=== PATIENT | male | born 1935 | race Caucasian/White ===

== ENCOUNTER → 2018-05-11 | Outpatient (CLI) | payer MEDICARE ==
[~2018-05-11] MED LIST: ASPIR 8181 MG PO; CLEOCIN HCL300 MG PO; COREG CR20 MG PO; COUMADIN 5 MG TA5 M1 PO; DYRENIUM100 MG PO; LEVOTHROID88 MCG PO; NORCO 5-325 TA1 EACH PO; PACERONE 200 M200 M1 PO; PLAVIX 75 MG TA75 M1 PO; PRINIVIL20 MG PO; SORINE 80 MG TA80 M1 PO
[2018-05-11 14:35] LABS: ALBUMIN 3.2 g/dL (3.4-5.0); DIRECT BILIRUBIN 0.1 mg/dL (<0.1-0.3); TOTAL BILIRUBIN 0.7 mg/dL (<0.1-1.0); TOTAL PROTEIN 6.7 g/dL (6.4-8.2)
== END ==
LOC: M.LAB 13:48
DX: Z51.81 Encounter for therapeutic drug level monitoring (principal); Z79.899 Other long term (current) drug therapy

== ENCOUNTER → 2018-06-24 | Outpatient (CLI) | payer MEDICARE | LOC: M.RAD 11:16 | DX: S22.080A Wedge compression fracture of T11-T12 vertebra, initial encounter for closed fracture (principal); M51.35 Other intervertebral disc degeneration, thoracolumbar region; M43.16 Spondylolisthesis, lumbar region; M41.84 Other forms of scoliosis, thoracic region; I70.0 Atherosclerosis of aorta; X58.XXXA Exposure to other specified factors, initial encounter; Y93.89 Activity, other specified; Y92.89 Other specified places as the place of occurrence of the external cause; Y99.8 Other external cause status ==

== ENCOUNTER 2019-09-12 05:09 | Emergency (ER) | payer MEDICARE ==
[~2019-09-12] VITALS: Ht 185.4 cm; Wt 87.1 kg
[2019-09-12] MEDS ORDERED: MULTIVITAMINS1 EAC7 PO (05:23)
[2019-09-12 05:38] LABS: ABSOLUTE BASOPHILS 0.1 thou/uL (0.0-0.2); ABSOLUTE EOSINOPHILS 0.1 thou/uL (0.0-0.7); ABSOLUTE LYMPHOCYTES 0.8 thou/uL (0.8-5.3); ABSOLUTE MONOCYTES 0.5 thou/uL (0.0-1.2); EOSINOPHILS 0.9 %; HEMATOCRIT 38.9 % (42.0-52.0); HEMOGLOBIN 13.2 gm/dL (14.0-18.0); LYMPHOCYTES 12.9 %; MCH 30.2 pg (26.0-34.0); MCV 88.9 fL (80.0-100.0); MONOCYTES 8.2 %; MPV 7.2 fl. (7.2-11.1); NUCLEATED RBCS 0 /100WBC; PLATELET COUNT* 142 thou/uL (150-400); RBC 4.37 mil/uL (4.50-6.00); RDW-CV 15.1 % (10.5-14.5); WBC 6.5 thou/uL (4.0-11.0)
[2019-09-12 05:45] LABS: CALCIUM 8.6 mg/dL (8.5-10.1); CREATININE 1.1 mg/dL (0.6-1.3); POTASSIUM 3.8 mmol/L (3.5-5.1)
[2019-09-12 05:47] LABS: INR 3.6; PROTIME 35.2 Seconds (9.20-11.50)
[2019-09-12 06:55] VITALS: BP 134/84
--- NOTE | 2019-09-13 10:40 | EKG ---
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: : 1935 Requested By: Karo Moore Order Number: [id number] MD: Sinan Sesay Measurements Intervals [place] Rate: 70 P: 67 SC: 28 QRS: -91 QRSD: 335 T: 80 QT: 655 QTc: 708 Interpretive Statements Ventricular-paced complexes No further rhythm analysis attempted due to paced rhythm Compared to ECG 08/25/2015 14:26:55 no change Electronically Signed On 09-13-2019 10:40:41 CDT by Sinan Sesay [email or web address] <ELECTRONICALLY SIGNED> By: Sinan Sesay MD, FACC 09/13/19 1040 0528 0528 Sinan Sesay MD, [facility] /EPI
== END 2019-09-12 06:56 | disposition home or self-care (01) ==
LOC: M.ERS 05:09
PROVIDERS: Emergency Medicine
DX: S50.02XA Contusion of left elbow, initial encounter (principal); S50.01XA Contusion of right elbow, initial encounter; Z95.0 Presence of cardiac pacemaker; Z85.038 Personal history of other malignant neoplasm of large intestine; Z91.041 Radiographic dye allergy status; Z88.0 Allergy status to penicillin; W18.39XA Other fall on same level, initial encounter; Y93.89 Activity, other specified; Y92.89 Other specified places as the place of occurrence of the external cause; Y99.8 Other external cause status

== ENCOUNTER 2019-09-16 20:19 | Inpatient (IN) | payer MEDICARE ==
[~2019-09-16] VITALS: Ht 185.4 cm; Wt 89.8 kg
[~2019-09-16 20:19] MED LIST changes: +MULTIVITAMINS1 EAC7 PO
[2019-09-16 20:24] VITALS: BP 123/79
[2019-09-16 20:51] LABS: ABSOLUTE EOSINOPHILS 0.1 thou/uL (0.0-0.7); ABSOLUTE LYMPHOCYTES 1.2 thou/uL (0.8-5.3); ABSOLUTE MONOCYTES 0.6 thou/uL (0.0-1.2); ABSOLUTE NEUTROPHILS 4.3 thou/uL (1.6-8.1); BASOPHILS 0.7 %; EOSINOPHILS 1.4 %; HEMATOCRIT 39.6 % (42.0-52.0); HEMOGLOBIN 13.6 gm/dL (14.0-18.0); LYMPHOCYTES 19.7 %; MCH 30.6 pg (26.0-34.0); MCHC 34.3 g/dL (28.0-37.0); MCV 89.5 fL (80.0-100.0); MONOCYTES 10.2 %; MPV 7.6 fl. (7.2-11.1); NUCLEATED RBCS 0 /100WBC; PLATELET COUNT* 145 thou/uL (150-400); RBC 4.43 mil/uL (4.50-6.00); WBC 6.3 thou/uL (4.0-11.0)
[2019-09-16 20:55] LABS: CALCIUM 8.3 mg/dL (8.5-10.1); POTASSIUM 3.6 mmol/L (3.5-5.1)
[2019-09-16 21:01] LABS: PROTIME 20.2 Seconds (9.20-11.50)
[2019-09-16 21:10] LABS: ALBUMIN 3.6 g/dL (3.4-5.0); MAGNESIUM 2.3 mg/dL (1.8-2.4)
[2019-09-16 22:53] LABS: URINE BILIRUBIN NEGATIVE (Negative); URINE BLOOD NEGATIVE (Negative); URINE CLARITY CLEAR; URINE COLOR DARK YELLOW; URINE GLUCOSE-RANDOM NEGATIVE (Negative); URINE KETONES NEGATIVE (Negative); URINE LEUKOCYTES-REFLEX TRACE (Negative); URINE NITRITE-REFLEX NEGATIVE (Negative); URINE PROTEIN NEGATIVE (Negative); URINE UROBILINOGEN 0.2 E.U./dl (0.2-1.0)
[2019-09-16 23:03] LABS: BACTERIA-REFLEX >30 Many /HPF (None Seen); CASTS None Seen /LPF (None Seen); CRYSTALS None Seen /LPF (None Seen); MUCUS 4-6 Moderate strn/LPF (None Seen); SQUAMOUS 0-3 Few /LPF (0-3); URINE RBC 3-10 Few /HPF (0-2); URINE WBC-REFLEX 6-15 Few /HPF (0-5); WBC CLUMPS Few (None Seen)
[2019-09-16] MEDS ORDERED: MACROBID 100 M100 M2 PO (23:12)
[2019-09-17] VITALS (8 sets, daily range): BP systolic 107–140; BP diastolic 69–88
--- NOTE | 2019-09-17 04:50 | NUR ---
PT RECEIVED FROM ED IN ROOM 204. DENIES PAIN AND SOB. ALERT AND ORIENTED X4. NO DIARRHOEA NOTED. CALL LIGHT WITHIN REACH AND BED IN LOW POSITION. HOURLY ROUNDING DONE FOR PT SAFETY.
[2019-09-17 09:05] LABS: CREATININE 0.9 mg/dL (0.6-1.3); MAGNESIUM 2.2 mg/dL (1.8-2.4); POTASSIUM 3.9 mmol/L (3.5-5.1)
[2019-09-17 09:07] LABS: INR 2.1; PROTIME 21.2 Seconds (9.20-11.50)
--- NOTE | 2019-09-17 09:22 | EKG ---
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 : 1935 Requested By: Karo Moore Order Number: [id number] MD: Sinan Sesay Measurements Intervals [place] Rate: 70 P: ID: 73 QRS: 255 QRSD: 303 T: 77 QT: 572 QTc: 618 Interpretive Statements A-V dual-paced rhythm with some inhibition No further analysis attempted due to paced rhythm Baseline wander in lead(s) V5 Compared to ECG 09/12/2019 05:28:22 No significant changes Electronically Signed On 09-17-2019 9:22:46 CDT by Sinan Sesay [email or web address] <ELECTRONICALLY SIGNED> By: Sinan Sesay MD, FACC 09/17/19 09 2030 29 Sinan Sesay MD, FAC /EPI
--- NOTE | 2019-09-17 11:18 | NUR ---
Pt is A&O. Resides at home with his . Independent. Pt has a walker and cane at home, but states that he does not currently use either. No home o2. No hx of HH or SNF. Pt is current with cardiac rehab in [place] and plans to resume at dc. PT eval pending. Goal is home at dc. Following.
--- NOTE | 2019-09-17 12:00 | NUR ---
ASSUMED CARE OF PT AT 0730. PT RESTING IN BED. AT BEDSIDE AND UPDATED ON CURRENT PLAN OF CARE. A&0X4, DENIES ANY PAIN OR SHORTNESS OF BREATH AT THIS TIME. TRACING APACED ON THE PROTECTIVE SIGNAL REPAIRER HELPER. ON RA SAT UPPER 90'S. PT UP WITH MOD ASSIST TO BATHROOM-WEAKNESS NOTED. IVF. PT TOLERATED CLEAR LIQUID DIET THIS AM WELL-ADVANCED TO REGULAR FOR LUNCH. PT GOAL FOR TODAY IS WORK WITH PT AND OT, TOLERATE ADVANCED DIET AND OBTAIN ECHO. AM ASSESSMENT CHARTED. MEDICATIONS PER APR. PT REPOSITIONS SELF WITH REMINDERS. HOURLY ROUNDING OBSERVED. BED IN LOW POSITION. BED/CHAIR ALARM IN PLACE. FALL PRECAUTIONS IN PLACE. CALL LIGHT WITHIN REACH. WILL CONTINUE PLAN OF CARE.
--- NOTE | 2019-09-17 14:11 | 2DMMODE ---
[place] [address] 2 D/M-MODE ECHOCARDIOGRAM Name: ZABRINA YUN Room: [address] IN [facility]#: [id number] Admission: 09/17/19 Attend Phys: Galileo Jack Discharge: Date of : 37 Date of Service: 09/17/19 1410 Report #: [id number] THIS REPORT FOR: cc: Marcela Rajan Dorothy L. RNP Blick, David R. MD [facility] ~ APPROVED REPORT Study performed: 09/17/2019 11:12:19 EXAM: Comprehensive 2D, Doppler, and color-flow Echocardiogram Patient Location: In-Patient Room #: [facility] Status: routine BSA: 2.15 HR: 70 bpm BP: 112/69 mmHg Rhythm: NSR Other Information Study Quality: Excellent Indications CVA/TIA Echo Enhancing Agent Indication: Rule out Shunt Agent(s) / Amount(s) Used: Agitated Saline 10 cc 2D Dimensions IVSd: 16.58 (7-11mm) LVOT Diam: 27.89 (18-24mm) LVDd: 49.86 mm PWd: 10.27 (7-11mm) Ascending Ao: 41.01 (22-36mm) LVDs: 43.98 (25-40mm) Aortic Root: 36.20 mm Volumes Left Atrial Volume (Systole) LA ESV Index: 107.50 mL/m2 Aortic Valve AoV Peak Cesario.: 2.13 m/s AO Peak Gr.: 18.09 mmHg LVOT Max P.51 mmHg AO Mean Gr.: 10.61 mmHg LVOT Mean P[place]66 [place] [address] 2 D/M-MODE ECHOCARDIOGRAM Name: ZABRINA YUN Room: [address] IN M.R.#: [id number] Admission: 09/17/19 Attend Phys: Galileo Jack Discharge: Date of : 37 Date of Service: 09/17/19 1410 Report #: [id number] LVOT Max V: 0.61 m/s AO V2 VTI: 40.12 cm LVOT Mean V: 0.37 m/s STANFORD (VTI): 1.81 cm2 LVOT V1 VTI: 11.88 cm Mitral Valve E/A Ratio: 1.80 MV Decel. Time: 149.91 ms MV E Max Cesario.: 0.63 m/s MV PHT: 43.48 ms MVA (PHT): 5.06 cm2 TDI E/Lateral E': 6.30 E/Medial E': 9.00 Medial E' Cesario.: 0.07 m/s Lateral E' Cesario.: 0.10 m/s Pulmonary Valve PV Peak Cesario.: 0.63 m/s PV Peak Gr.: 1.57 mmHg Tricuspid Valve RAP Estimate: 5.00 mmHg TR Peak Gr.: 26.27 mmHg RVSP: 31.00 mmHg PA Pressure: 31.00 mmHg Left Ventricle The left ventricle is normal size. There is global hypokinesis of the left ventricle. Moderate septal hypertrophy is present. Left ventricular systolic function is severely decreased. LVEF is 20-25%. Grade IV - fixed restrictive diastolic dysfunction. Right Ventricle The right ventricle is normal size. The right ventricular systolic function is normal. Pacemaker lead is present in the right ventricle. Atria Left atrium is severely dilated. The interatrial septum is intact with no evidence for an atrial septal defect. The right atrium size is normal. Aortic Valve Aortic valve is calcified. Mild aortic regurgitation. Moderate aortic stenosis. Mitral Valve The mitral valve is normal in structure. Trace mitral regurgitation. No evidence [place] [address] 2 D/M-MODE ECHOCARDIOGRAM Name: JAMAJULIO CESARKAMALJIT DE DIOS Room: [address] IN M.R.#: [id number] Admission: 09/17/19 Attend Phys: Galileo Jack Discharge: Date of : 37 Date of Service: 09/17/19 1410 Report #: [id number] Tricuspid Valve The tricuspid valve is normal in structure. Mild tricuspid regurgitation. estimated pa pressure 35 mm Hg Pulmonic Valve The pulmonary valve is normal in structure. Trace pulmonic regurgitation. Great Vessels The aortic root is normal in size. The ascending aorta is mildly dilated. IVC is normal in size and collapses >50% with inspiration. Pericardium There is no pericardial effusion. <Conclusion> LVEF is 20-25%. Left atrium is severely dilated. Mild aortic regurgitation. Moderate aortic stenosis. The interatrial septum is intact with no evidence for an atrial septal defect. <ELECTRONICALLY SIGNED> By: Sinan Sesay MD, FACC 09/17/19 1410 141 141 Sinan Sesay MD, FACC /INF
--- NOTE | 2019-09-17 18:15 | NUR ---
NO ACUTE CHANGES THROUGHOUT SHIFT. REFER TO CHARTING. PT PROGRESSING TOWARDS GOALS. PT TOLERATING REGULAR DIET WITHOUT DIFFICULTIES. PT WORKED WITH PT AND OT TODAY-TOLERATED FAIR. WEAKNESS NOTED. PT UP TO CHAIR FOR MEALS-TOLERATED WELL. ECHO COMPLETED-REFER TO RESULTS. IVF. REMAINED AT BEDSIDE THROUGHOUT AFTERNOON. CONTINUES TO TRACE A PACED ON THE INDEPENDENT JEWELER. ON RA SAT UPPER 90'S. PT DENIES ANY PAIN OR SHORTNESS OF BREATH THROUGHOUT AFTERNOON. MEDS PER MAR. PT REPOSITIONS SELF WITH REMINDERS. HOURLY ROUNDING OBSERVED. BED IN LOW POSITION. BED/CHAIR ALARM IN PLACE. CALL LIGHT WITHIN REACH. FALL PRECAUTIONS IN PLACE. WILL CONTINUE PLAN OF CARE.
[2019-09-18] VITALS: BP 121/74
[2019-09-18 04:00] VITALS: BP 135/85
[2019-09-18 04:51] LABS: INR 2.2; PROTIME 22.1 Seconds (9.20-11.50)
--- NOTE | 2019-09-18 05:04 | NUR ---
PT SLEPT ON AND OFF OVERNIGHT,HAS BEEN CALM AND COOPERATIVE. AO, FORGETFUL OVERNIGHT. ABLE TO USE CALL LITE AND MAKE NEEDS KNOWN. TELE APACED OVERNIGHT. RFA IV SL. PT USING URINAL TO VOID WTH ASSIST, UP WITH GB AND WALKER. ROOM AIR.
[2019-09-18 05:56] LABS: CALCIUM 8.1 mg/dL (8.5-10.1); CREATININE 0.9 mg/dL (0.6-1.3); MAGNESIUM 2.1 mg/dL (1.8-2.4); POTASSIUM 3.8 mmol/L (3.5-5.1)
[2019-09-18 08:00] VITALS: BP 129/76
--- NOTE | 2019-09-18 11:47 | NUR ---
RECIEVED REPORT AROUND 0730. ASSUMED CARE. VS AND ASSESSMENT CHARTED. PT HAD NO COMPLAINTS OF PAIN. ATTACHED TO HEART MONITOR. MEDICATION PER MAR. AT BEDSIDE THIS AM. CARDIOLOGY CONSULTED BY DR. GAYTAN. CALL LIGHT WITH IN REACH. WILL CONTINUE TO MONITOR.
[2019-09-18 12:03] VITALS: BP 136/83
[2019-09-18 16:07] VITALS: BP 113/63
--- NOTE | 2019-09-18 18:50 | NUR ---
NO NEW CHANGES FROM MORNING ASSESSMENT. MEDICATION PER MAR. NO REPORTS OF PAIN. VISITED AT BEDSIDE DURING SHIFT. PATIENT LYING IN BED. HEART MONITOR INTACT. PHYSICAL THERAPY WORKED WITH PATIENT THIS SHIFT. PATIENT DID GOOD. CALL LIGHT WITHIN REACH. WILL CONTINUE TO MONITOR.
[2019-09-18 20:00] VITALS: BP 118/71
[2019-09-19] VITALS: BP 123/73
[2019-09-19 03:55] VITALS: BP 120/70
[2019-09-19 05:05] LABS: INR 2.3; PROTIME 22.7 Seconds (9.20-11.50)
--- NOTE | 2019-09-19 05:16 | NUR ---
ASSUMED CARE OF PT AFTER REPORT AT 1930. PT A&OX4. VSS. PHYSICAL ASSESSMENT COMPLETED AND CHARTED. PT ON RA. PT TRACING APACED/BBB ON TELE. PT UPSTANDBY TO BSC. PT DENIES ANY PAIN. FALL PRECAUTIONS IN PLACE. CALL LIGHT WITHIN REACH.
[2019-09-19 08:00] VITALS: BP 131/95
[2019-09-19] MEDS ORDERED: LISINOPRIL5 MG PO (08:38)
[2019-09-19] MEDS ORDERED: VITAMIN B-121000 MC2 SUBLING (08:38)
[2019-09-19] MEDS ORDERED: SYNTHROID100 MC1 PO (08:38)
[2019-09-19] MEDS ORDERED: LASIX 20 MG TAB20 MG PO (08:43)
--- NOTE | 2019-09-19 11:21 | NUR ---
RECIEVED REPORT AROUND 07. ASSUMED CARE. VS AND ASSESSMENT CHARTED. NO REPORTS OF PAIN. HEART MONITOR INTACT. MEDICATION PER MAR. AT BEDSIDE. CALL LIGHT WITHIN REACH. WILL CONTINUE TO MONITOR.
[2019-09-19 12:03] VITALS: BP 131/95
--- NOTE | 2019-09-19 12:45 | NUR ---
RECIEVED DISCHARGE ORDERS FROM DR. GAYTAN. CARDIOLOLY AGREES WITH DISCHARGE. DISCHARGE PACKET GONE OVER, WITH PATIENT AND . ALL QUESTIONS ANSWERED. COMMUNICATED UNDERSTANDING. IV AND HEART MONITOR TAKEN OFF. ALL BELONGINGS LEFT UNIT WITH PATIENT AND AT 1245.
--- NOTE | 2019-09-21 14:44 | CON ---
[address] [address] CONSULTATION Name: ZABRINA YUN Room: [address] IN M.R.#: [id number] Admission: 09/17/19 Attend Phys: Antoinette Richard Discharge: 09/19/19 Date of : 37 Report #: [id number] THIS REPORT FOR: //name// cc: Marcela Rajan Dorothy L. RNP ~ THIS REPORT FOR: //name// CC: Marcela Jack DATE OF SERVICE: 09/18/2019 CARDIOLOGY CONSULTATION HISTORY OF PRESENT ILLNESS: The patient is an 84-year-old white male who I was asked to see in the hospital today after he complained of being lightheaded. The patient has an extensive and complicated past medical history. He had a coronary stent placed in the circumflex artery in 2003 at [facility] [place] the [place] In 2003, he had a syncopal spell and had a pacemaker inserted at [facility]. However, he had another syncopal spell and the pacemaker was upgraded to a defibrillator at [facility] about 6 months later. He has had a generator change since that time. He continues to be seen by his chief airport guide at [facility]. He does have a home monitoring device for his defibrillator. He has had no recent discharges. He notes that at one time, his ejection fraction only 30%; however, his last echocardiogram apparently showed an ejection fraction 48%. He stays very active at this time. He does fall occasionally. He notes that 5 days ago, he got up in the middle of the night and fell on his way to the bathroom. He apparently was brought here to [place] and evaluated in the Emergency Room and sent home. He then notes that 3 days ago, he lives with his at a restaurant. He felt lightheaded. He was brought here to [place] and felt to have urinary tract infection. Because of his history of coronary artery disease, I was asked to see the patient in consultation. He denies recent chest pain, shortness of breath, edema, palpitations, recent syncope, discharges of defibrillator. PAST MEDICAL HISTORY: He has had a cholecystectomy, hypertension, hyperlipidemia. He has a history of atrial fibrillation, apparently has been cardioverted in the past. CURRENT MEDICATIONS: Consist of the following: Amiodarone 200 mg a day, aspirin 81 mg a day, carvedilol 12.5 mg at bedtime, Synthroid, lisinopril 10 mg a day, warfarin 5 mg a day. ALLERGIES: HE HAS A PREVIOUS INTOLERANCE TO IV CONTRAST [place] [address] CONSULTATION Name: JAMAJULIO CESARKAMALJIT DE DIOS Room: [address] IN M.R.#: [id number] Admission: 09/17/19 Attend Phys: Antoinette Richard Discharge: 09/19/19 Date of : 37 Report #: [id number] FAMILY HISTORY: His father had heart disease. SOCIAL HISTORY: He is . He and his live in a farm outside [place], [place]. He quit smoking years ago, rarely drinks alcohol. REVIEW OF SYSTEMS: No history of stroke, asthma, liver disease, kidney disease. He has a history of colon cancer, had chemotherapy. No psychiatric illness. No chronic skin condition. PHYSICAL EXAMINATION: GENERAL: Revealed an elderly, frail-appearing male, lying in bed. He appeared in no distress. VITAL SIGNS: Blood pressure 120/70, pulse 70, he is afebrile. HEENT: He was anicteric. Conjunctivae pink. Mucous membranes moist. NECK: Veins nondistended. No carotid bruits. CHEST: Clear to auscultation. CARDIOVASCULAR: Regular rate and rhythm, grade 2 systolic ejection murmur. ABDOMEN: Soft. EXTREMITIES: Had no edema. SKIN: Warm and dry. NEUROLOGIC: Nonfocal. RADIOLOGICAL DATA: His ECG showed a ventricular paced rhythm. On the monitor since the patient has been here for the past couple of days, he remains AV sequentially paced. There were occasional episodes of failure to capture. His echocardiogram done yesterday showed ejection fraction only 25%, left atrial enlargement. There was evidence of moderate aortic stenosis. The peak gradient across the aortic valve was noted to be 18 mmHg. He had a CT scan of the head performed last week when he came after a fall that showed no acute abnormality, only atrophy. He had a CT scan of the chest after his fall that showed no acute abnormality, cardiomegaly. His chest x-ray, showed cardiomegaly, mild vascular congestion, some atelectasis. LABORATORY WORK: Sodium 141, creatinine 0.9. His BNP 6352. TSH 7.1. His INR is 2.2. White blood cell count 6.3, hemoglobin of 13.6. IMPRESSION AND RECOMMENDATIONS: 1. Sick sinus syndrome. The patient has been 100% paced. 2. Previous implantation of defibrillator. Pacemaker appears to have failed to capture. Most likely will have to have a lead replaced. 3. Previous implantation of defibrillator. No recent discharges. 4. Cardiomyopathy. The patient is on an EARNESTINE inhibitor and beta rhiannon. I would recommend adding Aldactone. 5. History of atrial fibrillation. The patient is on amiodarone and warfarin, I would hold warfarin at this time for possible need for pacemaker lead replacement. [facility] [address] [facility] [place] [address] CONSULTATION Name: ZABRINA YUN Room: [address] IN [facility].#: [id number] Admission: 09/17/19 Attend Phys: Antoinette Richard Discharge: 09/19/19 Date of : 37 Report #: [id number] 6. History of colon cancer. 7. Recent fall. 8. Dizzy spell. Suspect secondary to pacemaker failure to capture. 9. Coronary artery disease. No recent angina. Since the patient on warfarin, I would not recommend aspirin at this time. <ELECTRONICALLY SIGNED> By: Sinan Sesay MD, FACC 09/21/19 1444 0938 1000Daviantoinette Sesay MD, FACC /nt
== END 2019-09-19 12:45 | disposition home or self-care (01) | DRG 308 ==
LOC: M.ERS 20:19 → M.2W 23:32 → M.TBA-ER 23:32 → M.2W 09-17 01:04
PROVIDERS: Emergency Medicine; Internal Medicine; ADMIT Internal Medicine; ATTEND Internal Medicine
DX: T82.190A Other mechanical complication of cardiac electrode, initial encounter (principal); I50.23 Acute on chronic systolic (congestive) heart failure; D68.59 Other primary thrombophilia; I42.9 Cardiomyopathy, unspecified; I95.1 Orthostatic hypotension; I48.91 Unspecified atrial fibrillation; I11.0 Hypertensive heart disease with heart failure; E03.9 Hypothyroidism, unspecified; I49.5 Sick sinus syndrome; I35.0 Nonrheumatic aortic (valve) stenosis; E86.9 Volume depletion, unspecified; E53.8 Deficiency of other specified B group vitamins; E78.5 Hyperlipidemia, unspecified; Z90.49 Acquired absence of other specified parts of digestive tract; Y83.8 Other surgical procedures as the cause of abnormal reaction of the patient, or of later complication, without mention of misadventure at the time of the procedure; Z20.828 Contact with and (suspected) exposure to other viral communicable diseases; Y92.89 Other specified places as the place of occurrence of the external cause

== ENCOUNTER 2019-12-19 17:40 | Emergency (ER) | payer MEDICARE ==
[~2019-12-19] VITALS: Ht 182.9 cm; Wt 83.9 kg
[~2019-12-19 17:40] MED LIST changes: +LASIX 20 MG TAB20 MG PO; +LISINOPRIL5 MG PO; +MACROBID 100 M100 M2 PO; +SYNTHROID100 MC1 PO; +VITAMIN B-121000 MC2 SUBLING
[2019-12-19 18:45] LABS: ABSOLUTE BASOPHILS 0.1 thou/uL (0.0-0.2); ABSOLUTE EOSINOPHILS 0.2 thou/uL (0.0-0.7); ABSOLUTE LYMPHOCYTES 1.1 thou/uL (0.8-5.3); ABSOLUTE MONOCYTES 0.7 thou/uL (0.0-1.2); ABSOLUTE NEUTROPHILS 3.6 thou/uL (1.6-8.1); BASOPHILS 1.3 %; EOSINOPHILS 2.7 %; HEMATOCRIT 37.8 % (42.0-52.0); HEMOGLOBIN 12.9 gm/dL (14.0-18.0); LYMPHOCYTES 19.5 %; MCH 30.2 pg (26.0-34.0); MCHC 34.1 g/dL (28.0-37.0); MCV 88.5 fL (80.0-100.0); MONOCYTES 12.4 %; NUCLEATED RBCS 0 /100WBC; PLATELET COUNT* 155 thou/uL (150-400); POLYS 64.1 %; RBC 4.27 mil/uL (4.50-6.00); RDW-CV 15.5 % (10.5-14.5); WBC 5.7 thou/uL (4.0-11.0)
[2019-12-19 18:58] LABS: CALCIUM 8.7 mg/dL (8.5-10.1); CREATININE 0.9 mg/dL (0.6-1.3); POTASSIUM 3.9 mmol/L (3.5-5.1)
[2019-12-19 19:03] LABS: ALBUMIN 3.1 g/dL (3.4-5.0); TOTAL BILIRUBIN 0.7 mg/dL (<0.1-1.0); TOTAL PROTEIN 6.9 g/dL (6.4-8.2)
[2019-12-19 19:04] LABS: APTT 37.3 Seconds (25.0-31.3); INR 2.4
[2019-12-19 20:12] VITALS: BP 125/70
== END 2019-12-19 20:13 | disposition home or self-care (01) ==
LOC: M.ERS 17:40
PROVIDERS: Family Medicine
DX: S51.012A Laceration without foreign body of left elbow, initial encounter (principal); S70.02XA Contusion of left hip, initial encounter; S09.8XXA Other specified injuries of head, initial encounter; I48.91 Unspecified atrial fibrillation; E03.9 Hypothyroidism, unspecified; I50.32 Chronic diastolic (congestive) heart failure; Z88.0 Allergy status to penicillin; Z91.041 Radiographic dye allergy status; Z85.038 Personal history of other malignant neoplasm of large intestine; W01.0XXA Fall on same level from slipping, tripping and stumbling without subsequent striking against object, initial encounter; Y93.89 Activity, other specified; Y92.89 Other specified places as the place of occurrence of the external cause; Y99.8 Other external cause status

== ENCOUNTER 2020-09-08 10:56 | Emergency (ER) | payer OTHER ==
[~2020-09-08] VITALS: Ht 182.9 cm; Wt 86.2 kg
[2020-09-08] MEDS ORDERED: JANTOVEN2.5 MG PO (11:35)
[2020-09-08 13:27] LABS: URINE BILIRUBIN NEGATIVE (Negative); URINE BLOOD NEGATIVE (Negative); URINE CLARITY CLEAR; URINE COLOR YELLOW; URINE GLUCOSE-RANDOM NEGATIVE (Negative); URINE KETONES NEGATIVE (Negative); URINE LEUKOCYTES-REFLEX NEGATIVE (Negative); URINE NITRITE-REFLEX NEGATIVE (Negative); URINE PROTEIN NEGATIVE (Negative); URINE UROBILINOGEN 0.2 E.U./dl (0.2-1.0)
[2020-09-08 13:36] LABS: HEMATOCRIT 35.2 % (42.0-52.0); MCH 30.1 pg (26.0-34.0); MCHC 33.9 g/dL (28.0-37.0); MCV 88.7 fL (80.0-100.0); MPV 7.6 fl. (7.2-11.1); NUCLEATED RBCS 0 /100WBC; PLATELET COUNT* 141 thou/uL (150-400); RBC 3.97 mil/uL (4.50-6.00); RDW-CV 14.3 % (10.5-14.5); WBC 4.7 thou/uL (4.0-11.0)
[2020-09-08 13:45] LABS: CALCIUM 8.2 mg/dL (8.5-10.1); CREATININE 1.3 mg/dL (0.6-1.3); POTASSIUM 3.8 mmol/L (3.5-5.1)
[2020-09-08 13:52] LABS: ALBUMIN 3.6 g/dL (3.4-5.0); TOTAL BILIRUBIN 0.9 mg/dL (<0.1-1.0)
[2020-09-08 14:02] LABS: ABSOLUTE EOSINOPHILS 0.1 thou/uL (0.0-0.7); ABSOLUTE LYMPHOCYTES 1.3 thou/uL (0.8-5.3); ABSOLUTE MONOCYTES 0.4 thou/uL (0.0-1.2); ABSOLUTE NEUTROPHILS 2.9 thou/uL (1.6-8.1); ATYPICAL LYMPHS 6 %; PLATELET ESTIMATE DECREASED
[2020-09-08] MEDS ORDERED: DOXYCYCLINE 10100 MG PO (15:06)
--- NOTE | 2020-09-08 15:21 | EKG ---
[place] [address] ELECTROCARDIOGRAM REPORT Name: ZABRINA YUN Room: [facility]#: [id number] Admission: 09/08/20 Attend Phys: Discharge: Date of : 37 Date of Service: 09/08/20 1320 Report #: [id number] THIS REPORT FOR: //name// 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: [facility] : 1935 Requested By: Jaqueline Camacho Order Number: [id number] MD: Juan Luis Rivera Measurements Intervals [place] Rate: 69 P: [place]: 59 QRS: 231 QRSD: 220 T: 34 QT: 544 QTc: 583 Interpretive Statements Ventricular paced rhythm No further analysis attempted due to paced rhythm Compared to ECG 09/16/2019 20:30:45 QRS width has diminished Electronically Signed On 09-08-2020 15:20:57 CDT by Juan Luis Rivera [email or web address] <ELECTRONICALLY SIGNED> By: Juan Luis Rivera MD, [facility] 09/08/20 1520 1320 1320 Juan Luis Rivera MD, [facility] /EPI
[2020-09-08 15:45] VITALS: BP 140/80
== END 2020-09-08 15:45 | disposition home or self-care (01) ==
LOC: M.ERS 10:56
PROVIDERS: Physician Assistant
DX: U07.1 COVID-19 (principal); R78.4 Finding of other drugs of addictive potential in blood; E03.9 Hypothyroidism, unspecified; I10 Essential (primary) hypertension; Z95.0 Presence of cardiac pacemaker; Z85.038 Personal history of other malignant neoplasm of large intestine; Z88.0 Allergy status to penicillin

== ENCOUNTER 2021-01-25 10:22 | Inpatient (IN) | payer OTHER ==
[~2021-01-25] VITALS: Ht 182.9 cm; Wt 88.5 kg
[~2021-01-25 10:22] MED LIST changes: +DOXYCYCLINE 10100 MG PO; +JANTOVEN2.5 MG PO
[2021-01-25 10:34] VITALS: BP 115/66
[2021-01-25 10:54] VITALS: BP 115/66
[2021-01-25 11:18] LABS: ABSOLUTE BASOPHILS 0.1 thou/uL (0.0-0.2); ABSOLUTE EOSINOPHILS 0.1 thou/uL (0.0-0.7); ABSOLUTE LYMPHOCYTES 1.2 thou/uL (0.8-5.3); ABSOLUTE MONOCYTES 0.6 thou/uL (0.0-1.2); ABSOLUTE NEUTROPHILS 2.5 thou/uL (1.6-8.1); BASOPHILS 1.2 %; EOSINOPHILS 3.1 %; HEMATOCRIT 31.4 % (42.0-52.0); HEMOGLOBIN 10.5 gm/dL (14.0-18.0); LYMPHOCYTES 27.3 %; MCH 29.9 pg (26.0-34.0); MCHC 33.3 g/dL (28.0-37.0); MCV 89.9 fL (80.0-100.0); MONOCYTES 12.8 %; MPV 7.1 fl. (7.2-11.1); NUCLEATED RBCS 0 /100WBC; PLATELET COUNT* 167 thou/uL (150-400); POLYS 55.6 %; RDW-CV 14.9 % (10.5-14.5); WBC 4.4 thou/uL (4.0-11.0)
[2021-01-25 11:46] LABS: ANION GAP 9 mmol/L (7-16); BUN 28 mg/dL (7-18); CALCIUM 8.5 mg/dL (8.5-10.1); CHLORIDE 101 mmol/L (98-107); CO2 31 mmol/L (21-32); CREATININE 2.5 mg/dL (0.6-1.3); GLUCOSE 100 mg/dL (70-99); SODIUM 141 mmol/L (136-145)
[2021-01-25 11:47] LABS: POTASSIUM 2.9 mmol/L (3.5-5.1)
--- NOTE | 2021-01-25 11:57 | EKG ---
[place] [address] ELECTROCARDIOGRAM REPORT Name: ZABRINA YUN Room: [facility]#: [id number] Admission: 01/25/21 Attend Phys: Discharge: Date of : 37 Date of Service: 01/25/21 1046 Report #: [id number] THIS REPORT FOR: //name// [facility] ED Test Date: 2021-01-25 Test Time: 10:46:58 Pat Name: ZABRINA YUN Department: Room: Gender: Order Processing Manager: [facility] : 1935 Requested By: Miki Dumont Order Number: [id number] MD: Jua nLuis Rivera Measurements Intervals [place] Rate: 71 P: 90 [place]: 77 QRS: -127 QRSD: 150 T: 103 QT: 534 QTc: 581 Interpretive Statements Ventricular-paced complexes with occasional PVCs No further rhythm analysis attempted due to paced rhythm Since the prior tracing, PVCs are noted Electronically Signed On 01-25-2021 11:57:34 [employer] PREPAR[employer]ER by Juan Luis Rivera [email or web address] <ELECTRONICALLY SIGNED> By: Juan Luis Rivera MD, [facility] 01/25/21 1157 1046 1046 Juan Luis Rivera MD, [facility] /EPI
[2021-01-25 11:58] LABS: ALKALINE PHOSPHATASE 77 U/L (46-116); NT-PRO BRAIN NAT PEPTIDE > 35000 pg/mL (<300); SGOT 11 U/L (15-37); SGPT 14 U/L (30-65); TOTAL BILIRUBIN 0.7 mg/dL (<0.1-1.0); TOTAL PROTEIN 6.5 g/dL (6.4-8.2)
[2021-01-25 16:00] VITALS: BP 115/65
[2021-01-25 20:13] VITALS: BP 115/65
[2021-01-25 21:20] VITALS: BP 124/77
[2021-01-26] VITALS: BP 131/84
[2021-01-26 04:00] VITALS: BP 134/79
[2021-01-26 07:51] LABS: URINE BILIRUBIN NEGATIVE (Negative); URINE BLOOD TRACE (Negative); URINE CLARITY CLEAR; URINE COLOR YELLOW; URINE GLUCOSE-RANDOM NEGATIVE (Negative); URINE KETONES NEGATIVE (Negative); URINE LEUKOCYTES NEGATIVE (Negative); URINE NITRITE NEGATIVE (Negative); URINE PROTEIN NEGATIVE (Negative); URINE UROBILINOGEN 0.2 E.U./dl (0.2-1.0)
[2021-01-26 08:30] VITALS: BP 144/83
[2021-01-26 09:59] LABS: CALCIUM 8.7 mg/dL (8.5-10.1); CREATININE 2.3 mg/dL (0.6-1.3); MAGNESIUM 2.2 mg/dL (1.8-2.4); POTASSIUM 3.2 mmol/L (3.5-5.1)
[2021-01-26 10:17] LABS: INR 1.8; PROTIME 18.4 Seconds (9.20-11.50)
[2021-01-26 12:00] VITALS: BP 123/72
[2021-01-26 16:00] VITALS: BP 119/73
[2021-01-26 20:00] VITALS: BP 122/75
[2021-01-27] VITALS: BP 120/68
[2021-01-27 04:00] VITALS: BP 133/77
[2021-01-27 05:13] LABS: ALBUMIN 2.6 g/dL (3.4-5.0); CALCIUM 8.1 mg/dL (8.5-10.1); CREATININE 2.1 mg/dL (0.6-1.3); PHOSPHORUS* 2.4 mg/dL (2.5-4.9); POTASSIUM 3.2 mmol/L (3.5-5.1)
[2021-01-27 08:00] VITALS: BP 133/78
[2021-01-27 11:55] VITALS: BP 125/80
[2021-01-27 16:10] VITALS: BP 108/66
[2021-01-27 19:30] LABS: URINE BILIRUBIN NEGATIVE (Negative); URINE BLOOD 3+ (Negative); URINE CLARITY SL CLOUDY; URINE COLOR YELLOW; URINE GLUCOSE-RANDOM NEGATIVE (Negative); URINE KETONES NEGATIVE (Negative); URINE NITRITE-REFLEX NEGATIVE (Negative); URINE PROTEIN 2+ (Negative); URINE SPECIFIC GRAVITY 1.015 (1.005-1.030); URINE UROBILINOGEN 0.2 E.U./dl (0.2-1.0)
[2021-01-27 19:33] LABS: URINE LEUKOCYTES-REFLEX 2+ (Negative)
[2021-01-27 19:38] LABS: HYALINE CASTS 0-3 Few /LPF (None Seen); MUCUS 0-3 Light strn/LPF (None Seen); SQUAMOUS 0-3 Few /LPF (0-3); URINE RBC >20 Many /HPF (0-2); URINE WBC-REFLEX 6-15 Few /HPF (0-5)
[2021-01-27 19:39] LABS: CRYSTALS None Seen /LPF (None Seen)
[2021-01-27 19:40] LABS: BACTERIA-REFLEX 1-9 Few /HPF (None Seen)
[2021-01-27 20:00] VITALS: BP 115/73
[2021-01-28 00:13] VITALS: BP 118/71
[2021-01-28 04:00] VITALS: BP 136/70
[2021-01-28 08:00] VITALS: BP 124/72
[2021-01-28 09:20] LABS: ABSOLUTE BASOPHILS 0.1 thou/uL (0.0-0.2); ABSOLUTE EOSINOPHILS 0.1 thou/uL (0.0-0.7); ABSOLUTE LYMPHOCYTES 0.9 thou/uL (0.8-5.3); ABSOLUTE MONOCYTES 0.7 thou/uL (0.0-1.2); ABSOLUTE NEUTROPHILS 3.6 thou/uL (1.6-8.1); BASOPHILS 1.2 %; EOSINOPHILS 2.6 %; HEMATOCRIT 31.5 % (42.0-52.0); HEMOGLOBIN 10.4 gm/dL (14.0-18.0); LYMPHOCYTES 17.3 %; MCH 29.9 pg (26.0-34.0); MCHC 33.1 g/dL (28.0-37.0); MCV 90.4 fL (80.0-100.0); MONOCYTES 12.4 %; MPV 7.7 fl. (7.2-11.1); NUCLEATED RBCS 0 /100WBC; PLATELET COUNT* 175 thou/uL (150-400); POLYS 66.5 %; RBC 3.48 mil/uL (4.50-6.00); WBC 5.4 thou/uL (4.0-11.0)
[2021-01-28 09:34] LABS: ALBUMIN 2.9 g/dL (3.4-5.0); CALCIUM 8.3 mg/dL (8.5-10.1); CREATININE 1.8 mg/dL (0.6-1.3); MAGNESIUM 2.1 mg/dL (1.8-2.4); PHOSPHORUS* 2.5 mg/dL (2.5-4.9); POTASSIUM 3.3 mmol/L (3.5-5.1)
[2021-01-28 09:53] LABS: INR 2.1; PROTIME 21.3 Seconds (9.20-11.50)
[2021-01-28 12:10] VITALS: BP 110/61
[2021-01-28 16:10] VITALS: BP 108/63
[2021-01-28 20:00] VITALS: BP 122/72
[2021-01-29] VITALS: BP 114/69
[2021-01-29 04:00] VITALS: BP 117/63
[2021-01-29 04:44] LABS: ABSOLUTE EOSINOPHILS 0.2 thou/uL (0.0-0.7); ABSOLUTE LYMPHOCYTES 0.7 thou/uL (0.8-5.3); ABSOLUTE MONOCYTES 0.7 thou/uL (0.0-1.2); ABSOLUTE NEUTROPHILS 3.8 thou/uL (1.6-8.1); BASOPHILS 0.9 %; EOSINOPHILS 3.4 %; HEMATOCRIT 27.4 % (42.0-52.0); HEMOGLOBIN 9.2 gm/dL (14.0-18.0); LYMPHOCYTES 13.3 %; MCH 30.1 pg (26.0-34.0); MCHC 33.5 g/dL (28.0-37.0); MCV 89.9 fL (80.0-100.0); MONOCYTES 12.2 %; MPV 7.8 fl. (7.2-11.1); NUCLEATED RBCS 0 /100WBC; PLATELET COUNT* 154 thou/uL (150-400); POLYS 70.2 %; RBC 3.05 mil/uL (4.50-6.00); RDW-CV 14.9 % (10.5-14.5); WBC 5.4 thou/uL (4.0-11.0)
[2021-01-29 05:03] LABS: CALCIUM 7.9 mg/dL (8.5-10.1); CREATININE 1.7 mg/dL (0.6-1.3); MAGNESIUM 1.9 mg/dL (1.8-2.4); POTASSIUM 3.2 mmol/L (3.5-5.1)
[2021-01-29 05:05] LABS: INR 2.4; PROTIME 23.7 Seconds (9.20-11.50)
[2021-01-29 08:00] VITALS: BP 117/72
[2021-01-29 12:53] VITALS: BP 112/64
[2021-01-29] MEDS ORDERED: LEVOTHYROXINE112 MCG PO (13:00)
[2021-01-29] MEDS ORDERED: CEFDINIR300 MG PO (13:00)
--- NOTE | 2021-01-29 17:34 | 2DMMODE ---
[place] [address] 2 D/M-MODE ECHOCARDIOGRAM Name: ZABRINA YUN Room: [address] IN ..#: [id number] Admission: 01/25/21 Attend Phys: Galileo Jack Discharge: Date of : 37 Date of Service: 01/29/21 1734 Report #: [id number] THIS REPORT FOR: cc: Marcela Rajan Dorothy L. RNP Blick, David R. MD [facility] ~ ADDENDUM APPROVED REPORT Study performed: 01/29/2021 15:08:39 EXAM: Comprehensive 2D, Doppler, and color-flow Echocardiogram Patient Location: In-Patient Room #: [facility] Status: routine BSA: 2.10 HR: 70 bpm BP: 117/72 mmHg Rhythm: NSR Other Information Study Quality: Good Indications Congestive Heart Failure 2D Dimensions IVSd: 15.73 (7-11mm) LVOT Diam: 25.48 (18-24mm) LVDd: 49.72 mm PWd: 7.76 (7-11mm) Ascending Ao: 40.40 (22-36mm) LVDs: 46.85 (25-40mm) Aortic Root: 36.79 mm Volumes Left Atrial Volume (Systole) LA ESV Index: 171.60 mL/m2 Aortic Valve AoV Peak Cesario.: 2.31 m/s AO Peak Gr.: 21.34 mmHg LVOT Max P.62 mmHg AO Mean Gr.: 12.09 mmHg LVOT Mean P.87 mmHg LVOT Max V: 0.64 m/s AO V2 VTI: 42.15 cm LVOT Mean V: 0.44 m/s STANFORD (VTI): 1.19 cm2 LVOT V1 VTI: 9.87 cm AI [place]: 2.58 m/s2 [place] [address] 2 D/M-MODE ECHOCARDIOGRAM Name: ZABRINA YUN Room: [address] IN .R.#: [id number] Admission: 01/25/21 Attend Phys: Galileo Jack Discharge: Date of : 37 Date of Service: 01/29/21 1734 Report #: [id number] PHT: 321.90 ms TDI Medial E' Cesario.: 0.05 m/s Lateral E' Cesario.: 0.11 m/s Pulmonary Valve PV Peak Cesario.: 0.77 m/s PV Peak Gr.: 2.35 mmHg Tricuspid Valve RAP Estimate: 5.00 mmHg TR Peak Gr.: 38.35 mmHg RVSP: 43.00 mmHg PA Pressure: 43.00 mmHg Left Ventricle Left ventricle is mildly dilated. There is severe global hypokinesis of the left ventricle. Moderate septal hypertrophy is present. Left ventricular systolic function is severely decreased. LVEF is 15-20%. Grade IV - fixed restrictive diastolic dysfunction. Right Ventricle Right ventricle is dilated. The right ventricular systolic function is normal. Pacemaker lead is present in the right ventricle. Atria Left atrium is severely dilated. Right atrium is dilated. Aortic Valve Aortic valve is calcified. Mild aortic regurgitation. moderate aortic stenosis. Mitral Valve The mitral valve is normal in structure. Mild mitral regurgitation. No evidence of mitral valve stenosis. Tricuspid Valve The tricuspid valve is normal in structure. There is mild tricuspid valve regurgitation noted. estimated pa pressure 45 mm Hg Pulmonic Valve The pulmonary valve is normal in structure. Trace pulmonic regurgitation. Great Vessels The aortic root is normal in size. The ascending aorta is mildly dilated. IVC [place] [address] 2 D/M-MODE ECHOCARDIOGRAM Name: ZABRINA YUN Room: [address] IN [facility]#: [id number] Admission: 01/25/21 Attend Phys: Galileo Jack Discharge: Date of : 37 Date of Service: 01/29/21 1734 Report #: [id number] Pericardium Trace pericardial effusion. Left pleural effusion. <Conclusion> Left ventricle is mildly dilated. LVEF is 15-20%. Left atrium is severely dilated. Mild aortic regurgitation. moderate aortic stenosis. Mild mitral regurgitation. There is mild tricuspid valve regurgitation noted. estimated pa pressure 45 mm Hg <ELECTRONICALLY SIGNED> By: Sinan Sesay MD, FACC 01/29/21 1734 1734 173 Sinan Sesay MD, FACC /INF
[2021-01-29 20:00] VITALS: BP 113/65
[2021-01-30 00:40] VITALS: BP 111/68
[2021-01-30 04:26] VITALS: BP 125/70
[2021-01-30 05:09] LABS: ABSOLUTE BASOPHILS 0.1 thou/uL (0.0-0.2); ABSOLUTE EOSINOPHILS 0.2 thou/uL (0.0-0.7); ABSOLUTE LYMPHOCYTES 0.8 thou/uL (0.8-5.3); ABSOLUTE MONOCYTES 0.6 thou/uL (0.0-1.2); ABSOLUTE NEUTROPHILS 3.4 thou/uL (1.6-8.1); BASOPHILS 1.1 %; EOSINOPHILS 3.1 %; HEMATOCRIT 27.6 % (42.0-52.0); HEMOGLOBIN 9.2 gm/dL (14.0-18.0); MCH 29.8 pg (26.0-34.0); MCHC 33.1 g/dL (28.0-37.0); MCV 89.9 fL (80.0-100.0); MONOCYTES 11.7 %; MPV 7.7 fl. (7.2-11.1); NUCLEATED RBCS 0 /100WBC; PLATELET COUNT* 164 thou/uL (150-400); POLYS 68.1 %; RBC 3.07 mil/uL (4.50-6.00); RDW-CV 14.8 % (10.5-14.5)
[2021-01-30 06:34] LABS: INR 2.2; PROTIME 22.3 Seconds (9.20-11.50)
[2021-01-30 08:00] VITALS: BP 117/72
[2021-01-30] MEDS ORDERED: PROSCAR 5MG TABL5 MG PO (10:29)
[2021-01-30] MEDS ORDERED: FLOMAX0.4 MG PO (10:29)
[2021-01-30 12:21] VITALS: BP 103/67
[2021-01-30] MEDS ORDERED: LISINOPRIL2.5 MG PO (14:21)
[2021-01-30] MEDS ORDERED: COREG3.125 MG PO (14:21)
[2021-01-30 15:36] VITALS: BP 103/67
--- NOTE | 2021-02-02 13:18 | CON ---
[address] [address] CONSULTATION Name: ZABRINA YUN Room: [address] IN M.R.#: [id number] Admission: 01/25/21 Attend Phys: Antoinette Richard Discharge: 01/30/21 Date of : 37 Report #: [id number] THIS REPORT FOR: cc: Marcela Rajan Dorothy L. RNP Khan, Abid R. MD ~ DATE OF CONSULTATION: 01/26/2021 NEPHROLOGY CONSULT CONSULTING PHYSICIAN: Galileo Jack DO REASON FOR CONSULT: Acute kidney injury. HISTORY OF PRESENT ILLNESS: An 85-year-old gentleman who I am asked to see for acute kidney injury. He was found to have a creatinine of 2.5. He had an ultrasound showing bilateral hydronephrosis and a PVR of 1244. He had a [place] catheter placed and has had good urine output. He is somnolent. His is present at the bedside. He has no preexisting history of kidney disease and no outpatient kidney doctor. REVIEW OF SYSTEMS: Constitutional, psych, heme, eyes, ENT, respiratory, cardiac, GI, , endocrine, all negative except as documented above. PAST MEDICAL HISTORY: History of colon cancer and resection, hypothyroidism, diastolic heart failure, permanent pacemaker with a history of AFib. SOCIAL HISTORY: No tobacco. FAMILY HISTORY: Nonpertinent in this 85-year-old gentleman. CURRENT MEDICATIONS: Reviewed. PHYSICAL EXAMINATION: VITAL SIGNS: Blood pressure 123/72, pulse 72, respirations 18, temperature 36.9. GENERAL: No acute distress. HEENT: Eyes open. Ears, externally normal. CARDIOVASCULAR: Regular rate. LUNGS: Diminished. GASTROINTESTINAL: Negative. MUSCULOSKELETAL: Nontender. PSYCHIATRIC: Somnolent. NEUROLOGIC: [place] [address] CONSULTATION Name: ZABRINA YUN Room: [address]#: [id number] Admission: 01/25/21 Attend Phys: Antoinette Richard Discharge: 01/30/21 Date of : 37 Report #: [id number] LABORATORY DATA: Sodium 143, potassium 3.2, chloride 100, bicarbonate 32, BUN 26, creatinine 2.3, glucose 98, calcium 8.7, magnesium 2.2. White count 4.3, hemoglobin 10.5 and platelets 167. ASSESSMENT AND PLAN: 1. Acute kidney injury with an admission creatinine of 2.5 in the setting of bilateral hydronephrosis and obstructive uropathy with a PVR of 1244. UA noted 12/2019 creatinine 0.9, 08/2020 creatinine 1.3. 2. Hypokalemia. 3. Bilateral hydronephrosis. 4. Hypertension. 5. Hypothyroidism. 6. Atrial fibrillation. 7. He may possibly have some mild underlying chronic kidney disease as demonstrated by his ultrasound. 8. On normal saline. Good urine output. We will replace potassium to help correct the hypokalemia and consult Urology. Case was discussed with the patient's who is present at the bedside. We will follow along with you. Thank you for requesting my opinion in the care and management of this patient. <ELECTRONICALLY SIGNED> By: Cristiano Greene MD 02/02/21 1318 1316 1929Abiantoinette Greene MD /nt
== END 2021-01-30 16:25 | disposition home health service (06) | DRG 682 ==
LOC: M.ERS 10:22 → M.TBA-ER 12:06 → M.2W 12:06
PROVIDERS: Emergency Medicine; Family Medicine; ADMIT Internal Medicine; ATTEND Internal Medicine
DX: N17.0 Acute kidney failure with tubular necrosis (principal); I50.43 Acute on chronic combined systolic (congestive) and diastolic (congestive) heart failure; N13.8 Other obstructive and reflux uropathy; G93.40 Encephalopathy, unspecified; Z88.0 Allergy status to penicillin; Z88.8 Allergy status to other drugs, medicaments and biological substances; Z20.822 Contact with and (suspected) exposure to COVID-19; N13.6 Pyonephrosis; N40.1 Benign prostatic hyperplasia with lower urinary tract symptoms; I48.91 Unspecified atrial fibrillation; Z79.01 Long term (current) use of anticoagulants; E87.6 Hypokalemia; E03.9 Hypothyroidism, unspecified; R60.0 Localized edema; N32.0 Bladder-neck obstruction; I11.0 Hypertensive heart disease with heart failure; Z95.0 Presence of cardiac pacemaker; R31.0 Gross hematuria; Z85.038 Personal history of other malignant neoplasm of large intestine

== ENCOUNTER 2021-02-02 13:17 | Inpatient (IN) | payer OTHER ==
[~2021-02-02] VITALS: Ht 182.9 cm; Wt 68.5 kg
--- NOTE | ~2021-02-02 | EMS ---
[facility] [address] [facility] [place] [address] EMS Patient Care Report Name: ZABRINA YUN Room: [address] [place] [facility]#: [id number] Admission: 02/02/21 Attend Phys: Alexi Perez MD Discharge: Date of : 37 Report #: [id number] THIS REPORT FOR: //name// Report Transmitted: 02/02/2021 19:00 EMS Care Summary [facility] Incident [id number] @ 02/02/2021 12:20 Incident Location [address] [place] [address] Patient ZABRINA YUN Male, 85 Years 1935 Patient Address [address] [place] [address] Patient History Pacemaker/AICD,Urinary Tract Infection (UTI),Pneumonia, Patient Allergies No known allergies, Patient Medications Unknown, Chief Complaint AMS Disposition Transported No Lights/[place] Dispatch Reason Sick Person Transported To [facility] Narrative Dispatched to a residence for 85y/o male with increased weakness and confusion post UTI. Upon arrival pt. was in the bathroom cleaning up from a bowel movement. Pt. was alert but confused to time (pt. thought it was 1981). Pt. family and home health stated that pt. had been discharged from [place] [facility] [address] [address] EMS Patient Care Report Name: ZABRINA YUN Room: [place] [address] ADM IN ..#: [id number] Admission: 02/02/21 Attend Phys: Alexi Perez MD Discharge: Date of : 37 Report #: [id number] UTI and has a urinary catheter in place. Pt. was improving until this morning when his temp. lisandra to 99* and pt. became too weak to ambulate. Pt. was moved to the cot and then the ambulance. VS were stable with BG 112. Pt. family was informed of [place] high volume and refused to go to another facility. Pt. VS remained stable. Pt. was transported to [facility] for emergency services. Initial Vitals @12:45P: 80,R: 20,BP: 131/86,GCS: 14,SpO2: 95,Revised Trauma: 12, @13:00P: 76,R: 20,BP: 132/88,GCS: 14,SpO2: 95,Revised Trauma: 12, @12:30P: 76,R: 20,BP: 131/83,GCS: 14,Temp: 99F,Glucose: 112,SpO2: 96,Revised Trauma: 12, Impression Altered Mental Status Timeline 12:15,Call Received 12:20,Dispatched 12:20,En Route 12:26,Initial Responder On Scene 12:26,On Scene 12:27,At Patient 12:30,BP: 131/83 M,PULSE: 76,RR: 20 R,SPO2: 96 Ox,ETCO2: ,B,PAIN: ,GCS: 14, 12:44,Depart Scene 12:45,BP: 131/86 M,PULSE: 80,RR: 20 R,SPO2: 95 Ox,ETCO2: ,BG: ,PAIN: ,GCS: 14, 13:00,BP: 132/88 M,PULSE: 76,RR: 20 R,SPO2: 95 Ox,ETCO2: ,BG: ,PAIN: ,GCS: 14, 13:11,At Destination 13:13,Transfer Patient 13:25,Call Closed 13:42,In District Disclaimer v1.1 Copyright 2020 [employer] This EMS Care Summary contains data elements from the applicable legal record (which may be displayed differently). It is designed to provide pertinent information for the following purposes: continuity of care, clinical quality, and state data reporting. The complete legal record is available to ED staff and administrators of the receiving hospital in [employer]'s Patient Tracker. All data is provided "as is."
[~2021-02-02 13:17] MED LIST changes: +CEFDINIR300 MG PO; +COREG3.125 MG PO; +FLOMAX0.4 MG PO; +LEVOTHYROXINE112 MCG PO; +LISINOPRIL2.5 MG PO; +PROSCAR 5MG TABL5 MG PO
[2021-02-02 13:18] VITALS: BP 146/71
[2021-02-02 13:52] LABS: ABSOLUTE BASOPHILS 0.1 thou/uL (0.0-0.2); ABSOLUTE EOSINOPHILS 0.1 thou/uL (0.0-0.7); ABSOLUTE MONOCYTES 0.6 thou/uL (0.0-1.2); ABSOLUTE NEUTROPHILS 3.8 thou/uL (1.6-8.1); BASOPHILS 1.1 %; HEMATOCRIT 30.8 % (42.0-52.0); HEMOGLOBIN 10.2 gm/dL (14.0-18.0); LYMPHOCYTES 17.9 %; MCH 30.1 pg (26.0-34.0); MCHC 33.2 g/dL (28.0-37.0); MCV 90.8 fL (80.0-100.0); MONOCYTES 10.6 %; MPV 7.4 fl. (7.2-11.1); NUCLEATED RBCS 0 /100WBC; PLATELET COUNT* 185 thou/uL (150-400); POLYS 68.4 %; RDW-CV 14.8 % (10.5-14.5); WBC 5.6 thou/uL (4.0-11.0)
[2021-02-02 14:01] LABS: CALCIUM 8.4 mg/dL (8.5-10.1); CREATININE 1.6 mg/dL (0.6-1.3); POTASSIUM 3.4 mmol/L (3.5-5.1)
[2021-02-02 14:06] LABS: ALBUMIN 2.8 g/dL (3.4-5.0); TOTAL BILIRUBIN 0.6 mg/dL (<0.1-1.0); TOTAL PROTEIN 6.2 g/dL (6.4-8.2)
[2021-02-02 14:23] LABS: INFLUENZA A ANTIGEN Negative (Negative); INFLUENZA B ANTIGEN Negative (Negative)
[2021-02-02 14:52] LABS: URINE BILIRUBIN NEGATIVE (Negative); URINE BLOOD 2+ (Negative); URINE CLARITY CLEAR; URINE COLOR YELLOW; URINE GLUCOSE-RANDOM NEGATIVE (Negative); URINE KETONES NEGATIVE (Negative); URINE LEUKOCYTES-REFLEX NEGATIVE (Negative); URINE NITRITE-REFLEX NEGATIVE (Negative); URINE PROTEIN 2+ (Negative); URINE SPECIFIC GRAVITY 1.025 (1.005-1.030); URINE UROBILINOGEN 0.2 E.U./dl (0.2-1.0)
[2021-02-02 15:12] LABS: APTT 34.8 Seconds (25.0-31.3); INR 1.8; PROTIME 17.7 Seconds (9.20-11.50)
[2021-02-02 15:32] LABS: SQUAMOUS 4-10 Moderate /LPF (0-3); URINE WBC-REFLEX 0-5 Rare /HPF (0-5)
[2021-02-02 15:33] LABS: BACTERIA-REFLEX 1-9 Few /HPF (None Seen); CASTS None Seen /LPF (None Seen); CRYSTALS None Seen /LPF (None Seen); MUCUS 0-3 Light strn/LPF (None Seen)
[2021-02-02 17:32] VITALS: BP 107/57
--- NOTE | 2021-02-02 18:04 | NUR ---
PT'S CALLED ABOUT PT'S PACEMAKER FOR POSSIBLE MRI
[2021-02-02 21:59] VITALS: BP 122/72
--- NOTE | 2021-02-02 22:55 | NUR ---
ALERT AND ORIENTED X 2 MALE PATIENT TO BED 213 BY CART FROM ER IN STABLE CONDITION. ADMISSION ROUTINES IN PROGRESS. VITAL SIGNS STABLE. TELE MONITORING INITITED. PATIENT PASSED BEDSIDE SWALLOW TEST TO TAKE ORAL HS MED WITHOUT PROBLEM. FALL PRECAUTIONS IN PLACE. CONTINUE TO MONITOR.
[2021-02-02 22:58] VITALS: BP 123/73
[2021-02-03 00:40] VITALS: BP 117/67
[2021-02-03 03:06] LABS: GLYCOHEMOGLOBIN (HGB A1C) 5.1 % (4.8-5.6)
[2021-02-03 05:29] VITALS: BP 129/74
--- NOTE | 2021-02-03 05:50 | NUR ---
PATIENT STATUS UNCHANGED OVERNIGHT. RESTING QUIETLY ON HOURLY ROUNDS. ABLE TO MOVE SELF IN BED. SCD'S IN PLACE. TAKING ORAL MEDICATIONS AND FLUIDS WITHOUT PROBLEM. FALL PRECAUTIONS IN PLACE. V-PACED ON THE MONITOR. LARGE AMOUNTS CLEAR LIGHT YELLOW URINE OUTPUT BY SOTO CATHETER. CONTINUE TO MONITOR.
[2021-02-03 07:34] LABS: ABSOLUTE BASOPHILS 0.1 thou/uL (0.0-0.2); ABSOLUTE EOSINOPHILS 0.1 thou/uL (0.0-0.7); ABSOLUTE MONOCYTES 0.6 thou/uL (0.0-1.2); ABSOLUTE NEUTROPHILS 3.8 thou/uL (1.6-8.1); BASOPHILS 1.1 %; EOSINOPHILS 1.8 %; HEMATOCRIT 29.1 % (42.0-52.0); HEMOGLOBIN 9.9 gm/dL (14.0-18.0); LYMPHOCYTES 17.8 %; MCHC 33.9 g/dL (28.0-37.0); MCV 88.6 fL (80.0-100.0); MONOCYTES 10.5 %; MPV 7.4 fl. (7.2-11.1); NUCLEATED RBCS 0 /100WBC; PLATELET COUNT* 184 thou/uL (150-400); POLYS 68.8 %; RBC 3.29 mil/uL (4.50-6.00); RDW-CV 14.8 % (10.5-14.5); WBC 5.5 thou/uL (4.0-11.0)
[2021-02-03 07:42] LABS: CALCIUM 8.3 mg/dL (8.5-10.1); CREATININE 1.4 mg/dL (0.6-1.3)
[2021-02-03 07:45] LABS: INR 1.7; PROTIME 17.4 Seconds (9.20-11.50)
[2021-02-03 08:12] LABS: CHOLESTEROL 177 mg/dL (<200); HDL CHOLESTEROL 44 mg/dL (>40); LDL CHOLESTEROL 123 mg/dL (<100); TRIGLYCERIDE 50 mg/dL (<150); VLDL 10 mg/dL (<40)
[2021-02-03 08:16] LABS: SERUM ASSESSMENT Clear
[2021-02-03 08:45] VITALS: BP 118/69
[2021-02-03 09:54] LABS: CREATININE 1.4 mg/dL (0.6-1.3)
[2021-02-03 09:58] LABS: MAGNESIUM 1.9 mg/dL (1.8-2.4); PHOSPHORUS* 2.6 mg/dL (2.5-4.9)
[2021-02-03 13:45] VITALS: BP 106/65
--- NOTE | 2021-02-03 14:37 | EKG ---
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 : 1935 Requested By: Tresa Bowers Order Number: [id number] MD: Sinan Sesay Measurements Intervals [place] Rate: 71 P: 186 RI: 140 QRS: 249 QRSD: 166 T: 111 QT: 517 QTc: 562 Interpretive Statements Atrial and ventricular-paced complexes No further analysis attempted due to paced rhythm Compared to ECG 01/25/2021 10:46:58 Ventricular premature complex(es) no longer present Electronically Signed On 02-03-2021 14:36:47 HUMAN FACTORS ENGINEER by Sinan Sesay [email or web address] <ELECTRONICALLY SIGNED> By: Sinan Sesay MD, FACC 02/03/21 1436 1342 1342 Sinan Sesay MD, FACC /EPI
[2021-02-03 17:34] VITALS: BP 101/60
[2021-02-03 20:30] VITALS: BP 116/72
[2021-02-04] VITALS: BP 115/73
[2021-02-04 04:00] VITALS: BP 122/87
--- NOTE | 2021-02-04 06:29 | NUR ---
Aler and oriented x 1, pleasant and forgetful. Vitals are stable, HR v-paced, he does have a hx of afib. roomair sat 94-98%. He denies discomfort. Lungs sound diminished in lower lobes. He has moved around in bed and tried to get out a couple of times. This am he did sit on edge of bed and set off the alarm. Denies discomfort. He has slept well.
[2021-02-04 06:37] LABS: INR 1.8; PROTIME 17.7 Seconds (9.20-11.50)
[2021-02-04 08:30] VITALS: BP 99/56
[2021-02-04 12:00] VITALS: BP 98/63
[2021-02-04 16:01] VITALS: BP 92/63
[2021-02-04 20:00] VITALS: BP 102/68
[2021-02-05 02:00] VITALS: BP 122/74
[2021-02-05 04:00] VITALS: BP 122/74
[2021-02-05 05:29] LABS: INR 1.9; PROTIME 18.8 Seconds (9.20-11.50)
[2021-02-05 05:38] LABS: ALBUMIN 2.7 g/dL (3.4-5.0); CALCIUM 8.4 mg/dL (8.5-10.1); CREATININE 1.4 mg/dL (0.6-1.3); POTASSIUM 3.6 mmol/L (3.5-5.1); TOTAL BILIRUBIN 0.8 mg/dL (<0.1-1.0); TOTAL PROTEIN 6.2 g/dL (6.4-8.2)
[2021-02-05 05:39] LABS: ABSOLUTE BASOPHILS 0.1 thou/uL (0.0-0.2); ABSOLUTE EOSINOPHILS 0.1 thou/uL (0.0-0.7); ABSOLUTE LYMPHOCYTES 1.1 thou/uL (0.8-5.3); ABSOLUTE MONOCYTES 0.6 thou/uL (0.0-1.2); ABSOLUTE NEUTROPHILS 3.9 thou/uL (1.6-8.1); BASOPHILS 1.1 %; EOSINOPHILS 2.1 %; HEMOGLOBIN 10.9 gm/dL (14.0-18.0); LYMPHOCYTES 18.7 %; MCH 29.5 pg (26.0-34.0); MCV 89.4 fL (80.0-100.0); MONOCYTES 10.6 %; MPV 7.6 fl. (7.2-11.1); NUCLEATED RBCS 0 /100WBC; PLATELET COUNT* 195 thou/uL (150-400); POLYS 67.5 %; RBC 3.69 mil/uL (4.50-6.00); RDW-CV 14.6 % (10.5-14.5); WBC 5.8 thou/uL (4.0-11.0)
--- NOTE | 2021-02-05 07:54 | NUR ---
PATIENT HAS SLEPT WELL THROUGHOUT MOST OF THE NIGHT. VSS ON RA. PATIENT ALERT AND ORIENTED TO SELF BUT HAS CONFUSION AND IS FORGETFUL. MEDICATIONS GIVEN ORDERED AND CHARTED. SOTO TO DEPENDENT DRAINAGE WITH YELLOW URINE OUTPUT. FALL PRECAUTIONS IN PLACE AND HOURLY ROUNDS MADE. WILL CONTINUE WITH PLAN OF CARE AND NURSING TO MONITOR.
[2021-02-05 09:00] VITALS: BP 132/63
--- NOTE | 2021-02-05 09:13 | NUR ---
CM ASSESSMENT: PT IS A RE-ADMIT THAT HAD D/C'D 01/30/21. PT D/C'D HOME WITH HH DESPITE THERAPY RECCOMENDARTION OF SNF PLACEMENT. PT ALERT, BUT FORGETFUL AND STATES 'I DONT KNOW WHY I'M HERE'. CM CONTACTED PT'S SPOUSE AND SHE INFORMS THAT THE PT HAS BEEN WEAK AND UNABLE TO AMBULATE. CM ATTEMPTED TO DISCUSS SNF OPTIONS WITH PT'S SPOUSE, BUT SHE REQUEST THAT CM F/U WITH HER AFTER PT/OT EVAL IS COMPLETED. PT CONTNUES TO RESIDES AT HOME WITH SPOUSE AND SHE ASSIST HIM NEEDED WITH ADL'S. PT'S HOME HAS A RAMP TO THE ENTRY/ PT NORMALLY USES A WALKER FOR MOBILITY. PT HAS 0 HX OF SNF. PT CURRENTLY ON-SERVICE WITH [facility]. PT WILL LIKELY NEED SNF PLACEMENT AT D/C TO IMPROVE HIS MOBILITY. PT/OT EVALS PENDING. CM WILL REMAIN AVAILABLE TO ASSIST AND FOLLOW NEEDED. [facility] PHONE: [phone] FAX: [phone]
[2021-02-05 12:34] VITALS: BP 88/56
[2021-02-05 16:00] VITALS: BP 109/58
[2021-02-05 20:00] VITALS: BP 110/52
[2021-02-06] VITALS: BP 106/67
[2021-02-06 04:00] VITALS: BP 118/69
[2021-02-06 05:15] LABS: ABSOLUTE BASOPHILS 0.1 thou/uL (0.0-0.2); ABSOLUTE EOSINOPHILS 0.1 thou/uL (0.0-0.7); ABSOLUTE MONOCYTES 0.7 thou/uL (0.0-1.2); ABSOLUTE NEUTROPHILS 3.7 thou/uL (1.6-8.1); EOSINOPHILS 2.3 %; HEMATOCRIT 30.1 % (42.0-52.0); LYMPHOCYTES 18.7 %; MCH 29.7 pg (26.0-34.0); MCHC 33.4 g/dL (28.0-37.0); MCV 88.9 fL (80.0-100.0); MONOCYTES 11.7 %; MPV 7.5 fl. (7.2-11.1); NUCLEATED RBCS 0 /100WBC; PLATELET COUNT* 176 thou/uL (150-400); POLYS 66.3 %; RBC 3.38 mil/uL (4.50-6.00); RDW-CV 14.9 % (10.5-14.5); WBC 5.6 thou/uL (4.0-11.0)
--- NOTE | 2021-02-06 05:29 | NUR ---
PATIENT SLEPT WELL DURING THIS SHIFT. PT WITH ANTIBIOTICS INFUSING PER ORDER. PT WITH SOTO TO DEPENDENT DRAIN WITH DARK YELLOW URINE. PT ON ROOM AIR. PT VPACED ON RATCHET SETTER. PT DENIES NEEDS AT THIS TIME. FREQUENTLY USED ITEMS AND CALL LIGHT WITHIN REACH. SIDERAILS UPX2 AND BED ALARM ON. WILL CONTINUE TO MONITOR.
[2021-02-06 06:02] LABS: ALBUMIN 2.6 g/dL (3.4-5.0); CALCIUM 8.3 mg/dL (8.5-10.1); CREATININE 1.5 mg/dL (0.6-1.3); POTASSIUM 3.4 mmol/L (3.5-5.1); TOTAL BILIRUBIN 0.8 mg/dL (<0.1-1.0); TOTAL PROTEIN 5.7 g/dL (6.4-8.2)
[2021-02-06 06:31] LABS: INR 2.1; PROTIME 20.5 Seconds (9.20-11.50)
[2021-02-06 08:47] VITALS: BP 110/74
[2021-02-06 11:36] VITALS: BP 98/61
[2021-02-06] MEDS ORDERED: DOXYCYCLINE 10100 MG PO (13:39)
[2021-02-06] MEDS ORDERED: LASIX 20 MG TAB20 MG PO (13:44)
--- NOTE | 2021-02-06 14:13 | NUR ---
PLAN FOR THE PT TO D/C TODAY TO [facility]. PT AND SPOUSE IN AGREEMENT. W/C VAN TRANSPORT ARRANGED FOR [id number]. RN TO CALL REPORT. CM WILL REMAIN AVAILABLE TO ASSIST AND FOLLOW NEEDED. [facility] PHONE: [phone] FAX: [phone]
--- NOTE | 2021-02-06 15:45 | NUR ---
DISCHARGE TO [facility] PATIENT LEFT VIA VAN DC INFO AND COPIES GIVEN IV REMOVED PERSONAL BELONGINGS RETURNED TELEPHONE REPORT GIVEN
== END 2021-02-06 15:40 | DRG 177 ==
LOC: M.ERS 13:17 → M.2W 14:48 → M.TBA-ER 14:48 → M.ERS 15:02 → M.TBA-ER 15:02 → M.2W 21:50
PROVIDERS: Nurse Practitioner Family; ADMIT Internal Medicine; ATTEND Internal Medicine
DX: J69.0 Pneumonitis due to inhalation of food and vomit (principal); G93.41 Metabolic encephalopathy; I50.43 Acute on chronic combined systolic (congestive) and diastolic (congestive) heart failure; I42.9 Cardiomyopathy, unspecified; N39.0 Urinary tract infection, site not specified; E03.9 Hypothyroidism, unspecified; R33.9 Retention of urine, unspecified; I11.0 Hypertensive heart disease with heart failure; F03.90 Unspecified dementia, unspecified severity, without behavioral disturbance, psychotic disturbance, mood disturbance, and anxiety; Z20.822 Contact with and (suspected) exposure to COVID-19; I48.91 Unspecified atrial fibrillation; Z95.0 Presence of cardiac pacemaker; Z85.038 Personal history of other malignant neoplasm of large intestine; Z88.0 Allergy status to penicillin; Z91.041 Radiographic dye allergy status; Z79.01 Long term (current) use of anticoagulants; Y92.89 Other specified places as the place of occurrence of the external cause

== ENCOUNTER 2021-02-28 02:08 | Emergency (ER) | payer OTHER ==
[~2021-02-28] VITALS: Ht 182.9 cm; Wt 86.2 kg
--- NOTE | ~2021-02-28 | EMS ---
[place] [address] EMS Patient Care Report Name: ZABRINA YUN Room: [facility] Sofia#: [id number] Admission: 02/28/21 Attend Phys: Discharge: 02/28/21 Date of : 37 Report #: [id number] THIS REPORT FOR: //name// Report Transmitted: 02/28/2021 10:54 EMS Care Summary [facility] Incident [id number] @ 02/28/2021 01:15 Incident Location [address] Patient ZABRINA YUN Male, 85 Years 1935 Patient Address [address] [place] [address] Patient History Congestive Heart Failure (CHF),Hypertension (HTN),Pacemaker/AICD,Kidney/Renal Failure,Atrial Fibrillation,Constipation,Hypothyroidism,Hypokalemia,Nonrheumatic aortic stenosis, Patient Allergies Penicillin allergy,Intravenous Dye, Patient Medications Oxycodone, Levothyroxine, Lisinopril, Tamsulosin, Carvedilol, Finasteride, Warfarin, Amiodarone, Eliquis, Monodox, Furosemide, Chief Complaint I fell from my bed Disposition Transported No Lights/[place] Dispatch Reason Falls Transported To [facility] Med 1 response requested to [facility] for a male who has fallen and is [place] [id number] EMS Patient Care Report Name: ZABRINA YUN Room: [facility]#: [id number] Admission: 02/28/21 Attend Phys: Discharge: 02/28/21 Date of : 37 Report #: [id number] bleeding. Med 1 copied the call and began our response to the scene. Med 1 arrived on scene without incident. We were met at the back door to the building by staff. Laying supine on the tile floor we located a male patient. Patient alert with a GCS of 15. He advised that he was trying to get up from bed when he rolled out. He fell face first on to the tile floor below. He denied loss of consciousness. He does take a blood thinner. He had a small laceration to the left eyebrow in which the bleeding was controlled with pressure. His head and neck were palpated with no pain complaints or deformities. He was assisted to sit straight up where his back was palpated with no injuries found. Patient was assisted to the cot where he was sat in a position of comfort. He was covered and secured. He was then taken to the ambulance and placed inside. Vitals were obtained. ECG obtained. IV access in the left ac obtained. We began our transport to [place] as the closest open capable facility. Patient was monitored with no acute changes in condition. Report was called in to the ER via [email or web address] radio. Upon arrival to the ER patient was taken inside and to the ER bed. Patient was moved while report was given. Signatures were obtained and care was transferred. Med 1 cleared to return to service. Initial Vitals @01:49P: 94,BP: 122/72,Pain: 0/10,GCS: 15,SpO2: 97, @01:22P: 100,R: 18,BP: 122/70,GCS: 15,Glucose: 114,SpO2: 99,Revised Trauma: 12, @02:02P: 100,R: 18,BP: 122/72,Pain: 0/10,GCS: 15,SpO2: 99,Revised Trauma: 12, @02:04P: 89,R: 18,BP: 120/74,Pain: 0/10,GCS: 15,SpO2: 97,Revised Trauma: 12, @01:37P: 74,R: 18,BP: 128/70,Pain: 0/10,GCS: 15,SpO2: 97,Revised Trauma: 12, Assessments @01:23MENTAL:Event Oriented,Person Oriented,Time Oriented,Place Oriented,SKIN:HEENT:LUNG SOUNDS:ABDOMEN:PELVIS//GI:EXTREMITIES:PULSE:NEURO:@02:04MENTAL:Place Oriented,Person Oriented,Time Oriented,Event Oriented,SKIN:HEENT:LUNG SOUNDS:ABDOMEN:PELVIS//GI:EXTREMITIES:PULSE:NEURO: Impression Eye Injury Procedures @01:22 ALS Assessment Response: UnchangedSucceeded @01:28 IV Therapy - Saline Lock 10cc (20 ga) Site: Antecubital-Left Response: [place] [address] EMS Patient Care Report Name: ZABRINA YUN Room: [facility] ALEX Black#: [id number] Admission: 02/28/21 Attend Phys: Discharge: 02/28/21 Date of : 37 Report #: [id number] Timeline 01:14,Call Received 01:15,Dispatched 01:16,En Route 01:19,On Scene 01:21,At Patient 01:22,ALS Assessment,Response: UnchangedSucceeded, 01:22,BP: 122/70 M,PULSE: 100,RR: 18 R,SPO2: 99 Ox,ETCO2: ,B,PAIN: ,GCS: 15, 01:28,IV Therapy - Saline Lock 10cc 20 ga Site: Antecubital-Left,Response: UnchangedSucceeded, 01:33,Depart Scene 01:37,BP: 128/70 M,PULSE: 74,RR: 18 R,SPO2: 97 Ox,ETCO2: ,BG: ,PAIN: 0,GCS: 15, 01:49,BP: 122/72 M,PULSE: 94,RR: R,SPO2: 97 Ox,ETCO2: ,BG: ,PAIN: 0,GCS: 15, 02:02,BP: 122/72 M,PULSE: 100,RR: 18 R,SPO2: 99 Ox,ETCO2: ,BG: ,PAIN: 0,GCS: 15, 02:04,BP: 120/74 M,PULSE: 89,RR: 18 R,SPO2: 97 Ox,ETCO2: ,BG: ,PAIN: 0,GCS: 15, 02:05,At Destination 02:42,Call Closed Disclaimer v1.1 Copyright 2021 [employer] This EMS Care Summary contains data elements from the applicable legal record (which may be displayed differently). It is designed to provide pertinent information for the following purposes: continuity of care, clinical quality, and state data reporting. The complete legal record is available to ED staff and administrators of the receiving hospital in [employer] Patient Tracker. All data is provided "as is."
[2021-02-28] MEDS ORDERED: MILK OF MA400 MG/5 M PO (02:24)
[2021-02-28] MEDS ORDERED: PERCOCET 5-3251 EACH PO (02:25)
[2021-02-28] MEDS ORDERED: ELIQUIS5 MG PO (02:27)
[2021-02-28 04:05] VITALS: BP 114/65
== END 2021-02-28 04:05 | disposition home or self-care (01) ==
LOC: M.ERS 02:08
DX: S01.112A Laceration without foreign body of left eyelid and periocular area, initial encounter (principal); E03.9 Hypothyroidism, unspecified; Z79.899 Other long term (current) drug therapy; Z88.0 Allergy status to penicillin; Z91.041 Radiographic dye allergy status; W19.XXXA Unspecified fall, initial encounter; Y93.89 Activity, other specified; Y92.89 Other specified places as the place of occurrence of the external cause; Y99.8 Other external cause status